=== PATIENT | female | born 1980 | race African-American/Black ===

== ENCOUNTER 2018-08-10 15:20 | Emergency (ER) | payer BC ==
[~2018-08-10] VITALS: Ht 177.8 cm; Wt 100.0 kg
[~2018-08-10 15:20] MED LIST: CEPHALEXIN500 M1 PO; MOTRIN 600600 MG/TAB PO; NO HOME MEDICATIONS; PERCOCET 325 MG1 TA2 PO; PREDNISONE20 MG PO; PRENATAL1 TA1 PO; SLOW FE45 MG PO
[2018-08-10 15:23] VITALS: TEMP 96.9
[2018-08-10] MEDS ORDERED: NORCO 325 MG-51 TAB PO (16:42)
[2018-08-10 17:17] VITALS: BP 130/80; PULSE 82
== END 2018-08-10 17:18 | disposition home or self-care (01) ==
LOC: COL.ER 15:20
DX: S93.334A Other dislocation of right foot, initial encounter (principal); X50.0XXA Overexertion from strenuous movement or load, initial encounter; Z98.890 Other specified postprocedural states
CPT/HCPCS: Q4045

== ENCOUNTER → 2019-05-22 | Outpatient (CLI) | payer BC ==
[~2019-05-22] MED LIST changes: +NORCO 325 MG-51 TAB PO
== END ==
LOC: COL.RAD 13:30
DX: R10.11 Right upper quadrant pain (principal)